=== PATIENT | female | born 1955 | race Caucasian/White ===

== ENCOUNTER 2020-09-21 09:05 | Inpatient (IN) | payer MEDICARE, OTHER ==
[2020-09-21] MEDS ORDERED: SODIUM CHLORIDE 0.9% 500 ML 500 ML IV ONE (09:41)
[2020-09-21] MEDS ORDERED: ASPIRIN 81 MG PO STA (09:41)
[2020-09-21] MEDS ORDERED: NITROGLYCERIN OINT 1 INCH/GM PACKET TOPICAL STA (09:41)
[2020-09-21] MEDS ORDERED: NITROGLYCERIN SL TABS 0.4 MG TAB SUBLINGUAL STA (09:41)
--- NOTE | 2020-09-21 09:45 | ED ---
General Adult HPI - General Chief complaint: Chest Pain Stated complaint: Chest Pains Time Seen by Provider: 09/21/20 09:10 Source: patient, RN notes reviewed, old records reviewed Mode of arrival: wheelchair Limitations: no limitations - History of Present Illness Initial comments: This is a 65-year-old female who presents emergency Department with a past medical history significant for atrial fibrillation a strong family history of heart disease. Patient states 2 days ago on Friday she was having a fast heart rate up to 150 beats a minute. Patient states it lasts about 45 hours and eventually subsided. Patient states when it started she was taking a screw out of the wall and her heart started racing she became very diaphoretic at this time. Patient states she was not short of breath and she did not have any chest pain or discomfort at that time. Yesterday however she started having chest discomfort in the lower chest and she states the pain radiates to the right shoulder. Patient states that persisted until today. She decided to come to the emergency department she took a nitroglycerin it did not help she took a second nitroglycerin of her husbands and it did help with the pain but she still has having some pain. Patient denies any recent fever but states she has a chronic cough. Patient denies wanting to legs calf tenderness. - Related Data Home Medications Medication Instructions Recorded Confirmed ALPRAZolam [Xanax] 0.5 mg PO HS PRN 09/21/20 09/21/20 Cetirizine HCl [Zyrtec] 10 mg PO HS 09/21/20 09/21/20 Fluticasone Nasal [place] [Flonase 2 spr EA NOSTRIL DAILY 09/21/20 09/21/20 Nasal [place]] Ibuprofen [Motrin Ib] 400 mg PO Q8H PRN 09/21/20 09/21/20 Mometasone/Formoterol [Dulera 200 2 puff INHALATION RT-DAILY 09/21/20 09/21/20 Mcg-5 Mcg Inhaler] Montelukast [Singulair] 10 mg PO HS 09/21/20 09/21/20 Allergies Allergy/AdvReac Type Severity Reaction Status Date / Time codeine Allergy Unknown Verified 09/21/20 10:35 Penicillins Allergy Unknown Verified 09/21/20 10:35 Sulfa (Sulfonamide Allergy Unknown Verified 09/21/20 10:35 Antibiotics) Review of Systems ROS Statement: Those systems with pertinent positive or pertinent negative responses have been documented in the HPI. ROS Other: All systems not noted in ROS Statement are negative. Past Medical History Past Medical History: Atrial Fibrillation, Asthma, Cancer Additional Past Medical History / Comment(s): breast cancer History of Any Multi-Drug Resistant Organisms: None Reported Past Surgical History: Hysterectomy Additional Past Surgical History / Comment(s): mastectomy Past Psychological History: No Psychological Hx Reported Smoking Status: Never smoker Past Alcohol Use History: None Reported Past Drug Use History: None Reported General Exam - General Exam Comments Initial Comments: GENERAL: Patient is well-developed and well-nourished. Patient is nontoxic and well- hydrated and is in mild distress. ENT: Neck is soft and supple. No significant lymphadenopathy is noted. Oropharynx is clear. Moist mucous membranes. Neck has full range of motion without elici ting any pain. EYES: The sclera were anicteric and conjunctiva were pink and moist. Extraocular m ovements were intact and pupils were equal round and reactive to light. Eyelids were unremarkable. PULMONARY: Unlabored respirations. Good breath sounds bilaterally. No audible rales rhonchi or wheezing was noted. CARDIOVASCULAR: Patient is tachycardic at about 110 beats a minute ABDOMEN: Soft and nontender with normal bowel sounds. SKIN: Skin is clear with no lesions or rashes and otherwise unremarkable. NEUROLOGIC: Patient is alert and oriented x3. Cranial nerves II through XII are grossly intact. Motor and sensory are also intact. Normal speech, volume and content. Symmetrical smile. MUSCULOSKELETAL: Normal extremities with adequate strength and full range of motion. No lower extremity swelling or edema. No calf tenderness. LYMPHATICS: No significant lymphadenopathy is noted PSYCHIATRIC: Normal psychiatric evaluation. Limitations: no limitations Course Vital Signs 09/21/20 09/21/20 09:10 10:14 Temperature 99.9 F H 98 F Pulse Rate 120 H 98 Respiratory 18 18 Rate Blood Pressure 120/74 110/66 O2 Sat by Pulse 99 100 Oximetry Medical Decision Making - Medical Decision Making EKG shows sinus tachycardia at 104 bpm GA interval is 132 QRS is 72 QT interval 340 QTC is 447. Patient's EKG shows no ST segment elevation or depression. Patient received nitroglycerin sublingual in the emergency department she stated her pain completely relieved after this. Patient states she has no shoulder pain as well. Chest x-ray shows no acute abnormality. I spoke with some physicians agreed to admit the patient admitted the patient wrote admitting orders I continued heparin Nitropaste and the floor. - Lab Data Result diagrams: 09/21/20 09:47 09/21/20 09:47 Lab Results 09/21/20 09/21/20 09/21/20 Range/Units 09:47 09:47 09:47 WBC 14.3 H (3.8-10.6) k/uL RBC 5.26 (3.80-5.40) m/uL Hgb 15.6 (11.4-16.0) gm/dL Hct 46.7 H (34.0-46.0) % MCV 88.7 (80.0-100.0) fL MCH 29.7 (25.0-35.0) pg MCHC 33.5 (31.0-37.0) g/dL RDW 13.0 (11.5-15.5) % Plt Count 269 (150-450) k/uL MPV 8.7 Neutrophils % 77 % Lymphocytes % 14 % Monocytes % 6 % Eosinophils % 1 % Basophils % 0 % Neutrophils # 11.1 H (1.3-7.7) k/uL Lymphocytes # 2.1 (1.0-4.8) k/uL Monocytes # 0.9 (0-1.0) k/uL Eosinophils # 0.1 (0-0.7) k/uL Basophils # 0.0 (0-0.2) k/uL PT 10.3 (9.0-12.0) sec INR 1.0 (<1.2) APTT 23.2 (22.0-30.0) sec D-Dimer 0.31 (<0.60) mg/L FEU Sodium 133 L (137-145) mmol/L Potassium 3.9 (3.5-5.1) mmol/L Chloride 100 (98-107) mmol/L Carbon Dioxide 22 (22-30) mmol/L Anion Gap 11 mmol/L BUN 22 H (7-17) mg/dL Creatinine 0.87 (0.52-1.04) mg/dL Est GFR (CKD-EPI)AfAm 81 (>60 ml/min/1.73 sqM) Est GFR (CKD-EPI)NonAf 70 (>60 ml/min/1.73 sqM) Glucose 112 H (74-99) mg/dL Calcium 9.5 (8.4-10.2) mg/dL Magnesium 1.7 (1.6-2.3) mg/dL Total Bilirubin 1.4 H (0.2-1.3) mg/dL AST 28 (14-36) U/L ALT 25 (4-34) U/L Alkaline Phosphatase 86 (38-126) U/L Troponin I (0.000-0.034) ng/mL NT-Pro-B Natriuret Pep pg/mL Total Protein 6.9 (6.3-8.2) g/dL Albumin 4.5 (3.5-5.0) g/dL 09/21/20 09/21/20 Range/Units 09:47 09:47 WBC (3.8-10.6) k/uL RBC (3.80-5.40) m/uL Hgb (11.4-16.0) gm/dL Hct (34.0-46.0) % MCV (80.0-100.0) fL MCH (25.0-35.0) pg MCHC (31.0-37.0) g/dL RDW (11.5-15.5) % Plt Count (150-450) k/uL MPV Neutrophils % % Lymphocytes % % Monocytes % % Eosinophils % % Basophils % % Neutrophils # (1.3-7.7) k/uL Lymphocytes # (1.0-4.8) k/uL Monocytes # (0-1.0) k/uL Eosinophils # (0-0.7) k/uL Basophils # (0-0.2) k/uL PT (9.0-12.0) sec INR (<1.2) APTT (22.0-30.0) sec D-Dimer (<0.60) mg/L FEU Sodium (137-145) mmol/L Potassium (3.5-5.1) mmol/L Chloride (98-107) mmol/L Carbon Dioxide (22-30) mmol/L Anion Gap mmol/L BUN (7-17) mg/dL Creatinine (0.52-1.04) mg/dL Est GFR (CKD-EPI)AfAm (>60 ml/min/1.73 sqM) Est GFR (CKD-EPI)NonAf (>60 ml/min/1.73 sqM) Glucose (74-99) mg/dL Calcium (8.4-10.2) mg/dL Magnesium (1.6-2.3) mg/dL Total Bilirubin (0.2-1.3) mg/dL AST (14-36) U/L ALT (4-34) U/L Alkaline Phosphatase (38-126) U/L Troponin I <0.012 (0.000-0.034) ng/mL NT-Pro-B Natriuret Pep 498 pg/mL Total Protein (6.3-8.2) g/dL Albumin (3.5-5.0) g/dL Critical Care Time Critical Care Time: Yes Total Critical Care Time: 35 Disposition Clinical Impression: Unstable angina pectoris Disposition: ADMITTED IP TO THIS [facility] Referrals: Nonstaff,Physician [REFERRING] - 1-2 days Time of Disposition: 11:43
--- NOTE | 2020-09-21 10:05 | XR ---
EXAMINATION TYPE: XR chest 2V DATE OF EXAM: 09/21/2020 COMPARISON: NONE HISTORY: History of asthma presents with chest pain and cough. TECHNIQUE: Frontal and lateral views of the chest are obtained. FINDINGS: Overlying EKG leads. Elevation and eventration anterior aspect right hemidiaphragm. There i s no focal air space opacity, pleural effusion, or pneumothorax seen. The cardiac silhouette size is within normal limits. The osseous structures are intact. Surgical clips right neck region noted. IMPRESSION: No acute cardiopulmonary process.
[2020-09-21 10:08] LABS: Basophils % (A) 0 %; Eosinophils # (A) 0.1 k/uL (0-0.7); Eosinophils % (A) 1 %; HCT 46.7 % (34.0-46.0); HGB 15.6 gm/dL (11.4-16.0); Lymphocytes # (A) 2.1 k/uL (1.0-4.8); Lymphocytes % (A) 14 %; MCH 29.7 pg (25.0-35.0); MCHC 33.5 g/dL (31.0-37.0); MCV 88.7 fL (80.0-100.0); Mean Platelet Volume 8.7; Monocytes # (A) 0.9 k/uL (0-1.0); Monocytes % (A) 6 %; Neutrophils # (A) 11.1 k/uL (1.3-7.7); Neutrophils % (A) 77 %; Platelet Count 269 k/uL (150-450); RBC 5.26 m/uL (3.80-5.40); WBC 14.3 k/uL (3.8-10.6)
[2020-09-21 10:18] LABS: Albumin 4.5 g/dL (3.5-5.0); Calcium 9.5 mg/dL (8.4-10.2); Magnesium 1.7 mg/dL (1.6-2.3); Potassium 3.9 mmol/L (3.5-5.1); Total Bilirubin 1.4 mg/dL (0.2-1.3); Total Protein 6.9 g/dL (6.3-8.2)
[2020-09-21 10:21] LABS: D-Dimer 0.31 mg/L FEU (<0.60); Partial Thromboplastin Time 23.2 sec (22.0-30.0); Prothrombin Time 10.3 sec (9.0-12.0)
[2020-09-21] MEDS ORDERED: ONDANSETRON 4 MG/2 ML VIAL IVP STA (10:50)
[2020-09-21] MEDS ORDERED: HEPARIN SODIUM,PORCINE 5,000 UNIT/ML 1 ML VIAL IV ONE (11:41)
[2020-09-21] MEDS ORDERED: HEPARIN SOD,PORK IN 0.45% NACL 25,000 UNIT in 0.45% NACL 1 250ML.BAG IV SCH (11:45)
[2020-09-21] MEDS ORDERED: NITROGLYCERIN SL TABS 0.4 MG TAB SUBLINGUAL PRN (11:45)
[2020-09-21] MEDS ORDERED: traMADol 50 MG TAB PO PRN (13:22)
[2020-09-21] MEDS ORDERED: NALOXONE 0.4 MG/ML 1 ML VIAL IV PRN (13:22)
[2020-09-21] MEDS ORDERED: ACETAMINOPHEN TAB 325 MG TAB PO PRN (13:22)
[2020-09-21] MEDS ORDERED: MELATONIN 3 MG TABLET PO PRN (13:22)
[2020-09-21] MEDS ORDERED: ALPRAZolam 0.5 MG TAB PO PRN (13:30)
--- NOTE | 2020-09-21 13:40 | P.HPIM ---
History of Present Illness H&P Date: 09/21/20 Chief Complaint: chest pain Patient is a 65-year-old female with a past medical history atrial fibrillation, breast cancer, and asthma who presented to the ER with complaints of chest pain. In the ER she underwent extensive evaluation. Vital signs within normal limits on admission. Initial EKG showed normal sinus rhythm without any significant ST-T wave changes. Initial laboratory analysis showed mildly elevated white blood cell count. Initial set of troponins were negative. She was given a dose of nitro in the emergency department her chest pain. She was placed in observation for further evaluation. Patient seen and examined at bedside. Two days ago she was taking a screw out of the wall became diaphoretic and had a pounding in neck, Pulse on BP machine 140- 150 it stayed up for 4-5 hours. Took baby aspirin and had improvement. During t hat time she was as feeling diaphoretic and lightheaded. She has a chronic cough unchanged. Yesterday had terrible heart burn and epigastric pain and pain in right shoulder, + dry heaves. This continued to today pain is epigastric wirh pain in shoulder. + Shortness of breath yesteryda took breathing treatment which seemed to help. This pain lasted into today. No numbness in Jaw, Tingling on right side of chest and down into finger tips on waking a few days ago, has not returned. Took ASA 325mg on the way to hospital. + chronic cough that is unchanged, no fevers, no flu. 15 years ago had chest pain underwent cardiac cath and it was negative. Following with Dr. Perry last seen 1.5 weeks ago and had an echo done, not on anticoagulation for A fib. Review of Systems Pertinent positives and negatives as discussed in HPI, a complete review of systems was performed and all other systems are negative. Past Medical History Past Medical History: Atrial Fibrillation, Asthma, Cancer Additional Past Medical History / Comment(s): breast cancer History of Any Multi-Drug Resistant Organisms: None Reported Past Surgical History: Hysterectomy Additional Past Surgical History / Comment(s): mastectomy, cardiac cath, partial thyroidesctomy. Past Psychological History: No Psychological Hx Reported Smoking Status: Never smoker Past Alcohol Use History: None Reported Past Drug Use History: None Reported Additional History: No cane or walker - Past Family History Mother Family Medical History: Hyperlipidemia, Hypertension, Myocardial Infarction (MT) Additional Family Medical History / Comment(s): aortic valve replacement. MT age greater than 65 Medications and Allergies Home Medications Medication Instructions Recorded Confirmed Type ALPRAZolam [Xanax] 0.5 mg PO HS PRN 09/21/20 09/21/20 History Cetirizine HCl [Zyrtec] 10 mg PO HS 09/21/20 09/21/20 History Fluticasone Nasal [place] [Flonase 2 spr EA NOSTRIL DAILY 09/21/20 09/21/20 History Nasal [place]] Ibuprofen [Motrin Ib] 400 mg PO Q8H PRN 09/21/20 09/21/20 History Mometasone/Formoterol [Dulera 200 2 puff INHALATION RT-DAILY 09/21/20 09/21/20 History Mcg-5 Mcg Inhaler] Montelukast [Singulair] 10 mg PO HS 09/21/20 09/21/20 History Allergies Allergy/AdvReac Type Severity Reaction Status Date / Time codeine Allergy Unknown Verified 09/21/20 10:35 Penicillins Allergy Unknown Verified 09/21/20 10:35 Sulfa (Sulfonamide Allergy Unknown Verified 09/21/20 10:35 Antibiotics) Physical Exam Osteopathic Statement: *. No significant issues noted on an osteopathic s tructural exam other than those noted in the History and Physical/Consult. Vitals: Vital Signs Temp Pulse Pulse Resp BP BP Pulse Ox 09/21/20 12:18 97.9 F 101 H 18 116/84 96 09/21/20 11:45 96 09/21/20 10:14 98 F 98 18 110/66 100 09/21/20 09:10 99.9 F H 120 H 18 120/74 99 Intake and Output 09/20/20 09/21/20 09/21/20 22:59 06:59 14:59 Other: # Voids 1 Weight 72.575 kg General: non toxic, no distress, appears at stated age Derm: warm, dry Head: atraumatic, normocephalic, symmetric Eyes: EOMI, no lid lag, anicteric sclera, pupils equal round reactive to light ENT: Nose and ears atraumatic, no thrush, no pharyngeal erythema Neck: No thyromegaly, no cervical lymphadenopathy, trachea midline, supple Mouth: no lip lesion, mucus membranes moist Cardiovascular: S1S2 reg, no murmur, positive posterior tibial pulse bilateral, no edema, capillary refill less than 2 seconds Lungs: clear to ascultation bilateral, no ronchi, no rales, no wheeze, no accessory muscle use Abdominal: soft, nontender to palpation, no guarding, no appreciable organomegaly, normal bowel sounds Ext: no gross muscle atrophy, muscle strength muscle strength 5 out of 5 in all 4 extremities, no contractures Neuro: CN II-XI grossly intact, light touch intact all 4 extremities, finger to nose within normal limits, Psych: Alert, oriented, appropriate affect Results CBC & Chem 7: 09/21/20 09:47 09/21/20 09:47 Labs: Abnormal Lab Results - Last 24 Hours (Table) 09/21/20 09/21/20 Range/Units 09:47 09:47 WBC 14.3 H (3.8-10.6) k/uL Hct 46.7 H (34.0-46.0) % Neutrophils # 11.1 H (1.3-7.7) k/uL Sodium 133 L (137-145) mmol/L BUN 22 H (7-17) mg/dL Glucose 112 H (74-99) mg/dL Total Bilirubin 1.4 H (0.2-1.3) mg/dL Thrombosis Risk Factor Assmnt - DVT/VTE Prophylaxis DVT/VTE Prophylaxis: Low risk, early ambulation encouraged - Choose All That Apply Each Risk Factor Represents 2 Points: Age 61-74 years Thrombosis Risk Factor Assessment Total Risk Factor Score: 2 Thrombosis Risk Factor Assessment Level: Low Risk Assessment and Plan Assessment: Epigastric pain - possible acute coronary syndrome - follow troponin - ASA, heparin gtt, statin, BB - Tele - Cardio consult - NPO after midnight - gallbladder US Hx of A fib - not on chronic anticoagulation, follows with Dr. Perry, echo 1 week ago - tele Asthma without exacerbation -Continue home inhalers, flonase - zyrtec The patient is placed in observation with an anticipated less than 2 midnight stay for evaluation of chest pain.. Surrogate decision-maker: DVT prophylaxis: SCDs Discussed with: patient, nursing Anticipated discharge date: in AM Anticipated discharge place: home A total of 35 minutes was spent on the care of this complex patient more than 50% of the time was spent in counseling and care coordination.
[2020-09-21] MEDS: SODIUM CHLORIDE 0.9% 1,000 ML IV SCH (16:25)
[2020-09-21] MEDS: NITROGLYCERIN OINT 1 INCH/GM PACKET TOPICAL SCH ×2 (16:26→20:53)
[2020-09-21] MEDS: METOPROLOL TARTRATE 12.5 MG TAB PO SCH (20:46)
[2020-09-21] MEDS: LORATADINE 10 MG TAB PO SCH (20:46)
[2020-09-21] MEDS: MONTELUKAST 10 MG TAB PO SCH (20:46)
[2020-09-21] MEDS ORDERED: ATORVASTATIN 80 MG TAB PO SCH (21:00)
[2020-09-22] MEDS: SODIUM CHLORIDE 0.9% 1,000 ML IV SCH ×4 (02:44→20:57)
[2020-09-22 03:35] LABS: HCT 38.7 % (34.0-46.0); HGB 13.3 gm/dL (11.4-16.0); MCH 30.9 pg (25.0-35.0); MCHC 34.4 g/dL (31.0-37.0); MCV 89.7 fL (80.0-100.0); Mean Platelet Volume 8.4; Platelet Count 183 k/uL (150-450); RBC 4.32 m/uL (3.80-5.40); RDW 13.1 % (11.5-15.5); WBC 13.3 k/uL (3.8-10.6)
[2020-09-22 03:56] LABS: Albumin 3.2 g/dL (3.5-5.0); Calcium 8.2 mg/dL (8.4-10.2); Potassium 3.6 mmol/L (3.5-5.1); Total Bilirubin 1.3 mg/dL (0.2-1.3); Total Protein 5.2 g/dL (6.3-8.2)
[2020-09-22] MEDS: NITROGLYCERIN OINT 1 INCH/GM PACKET TOPICAL SCH ×2 (05:29→10:13)
--- NOTE | 2020-09-22 08:28 | US ---
EXAMINATION TYPE: US gallbladder DATE OF EXAM: 09/22/2020 COMPARISON: NONE CLINICAL HISTORY: gallbladder us. epigastric pain. EXAM MEASUREMENTS: Liver Length: 12.2 cm Gallbladder Wall: 0.7 cm CBD: 0.5 cm Right Kidney: 10.9 x 4.6 x 4.5 cm Technically difficult study due to midline bowel gas. Pancreas: not well visualized due to midline bowel gas Liver: limited visualization to intercostal window, visualized portions wnl. Gallbladder: no stones seen, distended at 9.4 cm, wall thickening up to 0.7 cm. With some suggestion of pericholecystic fluid Evidence for sonographic Miranda's sign: Yes CBD: wnl Right Kidney: No hydronephrosis or masses seen There is no ascites. IMPRESSION: Exam is limited. Technologist reports a positive sonographic Miranda's sign. Poor penetrat ion of the ultrasound within the liver could be due to underlying hepatic steatosis. Correlate for ch olecystitis.
[2020-09-22] MEDS: oxyCODONE-APAP 5-325MG 1 EACH TAB PO PRN (08:38)
[2020-09-22] MEDS: FLUTICASONE 50MCG/SPRAY NASAL 16GM EA NOSTRIL SCH (08:39)
[2020-09-22] MEDS: METOPROLOL TARTRATE 12.5 MG TAB PO SCH ×2 (08:43→20:56)
[2020-09-22] MEDS: SYMBICORT 160-4.5 MCG INHALER INHALATION SCH ×2 (08:46→21:40)
[2020-09-22] MEDS ORDERED: ASPIRIN 325 MG TAB PO SCH (09:00)
--- NOTE | 2020-09-22 11:11 | P.CRDCN ---
History of Present Illness Consult date: 09/22/20 History of present illness: CHIEF COMPLAINT: Chest pain HISTORY OF PRESENT ILLNESS: This is a 65 -year old female with a past medical history significant for paroxysmal atrial fibrillation, breast cancer, and asthma. Patient follows in the office with Dr. Perry. We have been asked to see the patient in consultation for chest pain. Patient examined this morning at the bedside. She reports on Friday she was helping her unscrew something from the wall when she began feeling short of breath and diaphoretic. She states she took her blood pressure which was increased with a systolic in the 150s. She noticed her heart rate was also elevated above 100. She states the symptoms eventually resolved. Yesterday she reports she began having intense epigastric pain that radiated to her right shoulder. She states she was burping a lot and thought she was having heartburn. She reports some nausea and vomiting as well. At the time of my exam this morning, the patient is not having any chest pain. She is having epigastric pain and also right upper quadrant abdominal pain. She appears uncomfortable and is holding her abdomen at the time of examination. DIAGNOSTICS: EKG reveals sinus tachycardia without signs of acute ischemia Chest xray negative for acute cardiopulmonary process Laboratory data: WBC 14.3. Hemoglobin 15.6. Platelet count 269. D-dimer 0.31. Sodium 133. Potassium 3.9. BUN 22. Creatinine 0.87. Bilirubin 1.4. AST 28. ALT 25. Troponins negative 3. BNP 498. Current home cardiac medications include none Echocardiogram completed in the office on 09/11/2020 reveals ejection fraction of 60%, moderate aortic regurgitation, mild mitral regurgitation, and mild tricuspid regurgitation. Gallbladder ultrasound no gallstones seen. Gallbladder distended at 9.4 cm. Wall thickening up to 0.7 cm. Some suggestion of pericholecystic fluid. Correlate for cholecystitis. REVIEW OF SYSTEMS: At the time of my exam: CONSTITUTIONAL: Denies fever or chills. HEENT: Denies blurred vision, vision changes, or eye pain. Denies hemoptysis CARDIOVASCULAR: Denies chest pain, orthopnea, PND or palpitations RESPIRATORY: No shortness of breath. GASTROINTESTINAL: Reports epigastric pain and right upper quadrant abdominal pain. HEMATOLOGIC: Denies bleeding disorders. GENITOURINARY: Denies any blood in urine. SKIN: Denies pruitis. Denies rash. PHYSICAL EXAM: VITAL SIGNS: Reviewed. GENERAL: Well-developed in no acute distress. HEENT: Head is normocephalic. Pupils are equal, round. Sclerae anicteric. Mucous membranes of the mouth are moist. Neck supple. No JVD or thyromegaly LUNGS: Respirations even and unlabored. Lungs essentially clear to auscultation bilaterally. HEART: Regular rate and rhythm. S1 and S2 heard. Systolic murmur noted. ABDOMEN: Soft. Nondistended. Patient with tenderness of epigastric region and right upper quadrant with palpation. EXTREMITIES: Normal range of motion. No clubbing or cyanosis. Peripheral pulses intact. No lower extremity edema NEUROLOGIC: Awake and alert. Oriented x 3. ASSESSMENT: Epigastric and right upper quadrant abdominal pain, gallbladder ultrasound reveals possible cholecystitis Leukocytosis Paroxysmal atrial fibrillation, not on long-term anticoagulation, currently maintaining sinus mechanism History of asthma History of breast cancer PLAN: An acute coronary event has been ruled out Discontinue IV heparin, aspirin, nitro Recommend surgical consultation Patient is stable from a cardiac perspective. She may follow up with Dr. Perry outpatient Nurse practitioner note has been reviewed by physician. Signing provider agrees with the documented findings, assessment, and plan of care. Past Medical History Past Medical History: Atrial Fibrillation, Asthma, Cancer Additional Past Medical History / Comment(s): breast cancer History of Any Multi-Drug Resistant Organisms: None Reported Past Surgical History: Hysterectomy Additional Past Surgical History / Comment(s): mastectomy, cardiac cath, partial thyroidesctomy. Past Psychological History: No Psychological Hx Reported Smoking Status: Never smoker Past Alcohol Use History: None Reported Past Drug Use History: None Reported - Past Family History Mother Family Medical History: Hyperlipidemia, Hypertension, Myocardial Infarction ([place]) Additional Family Medical History / Comment(s): aortic valve replacement. [place] age greater than 65 Medications and Allergies Home Medications Medication Instructions Recorded Confirmed Type ALPRAZolam [Xanax] 0.5 mg PO HS PRN 09/21/20 09/21/20 History Cetirizine HCl [Zyrtec] 10 mg PO HS 09/21/20 09/21/20 History Fluticasone Nasal [place] [Flonase 2 spr EA NOSTRIL DAILY 09/21/20 09/21/20 History Nasal [place]] Ibuprofen [Motrin Ib] 400 mg PO Q8H PRN 09/21/20 09/21/20 History Mometasone/Formoterol [Dulera 200 2 puff INHALATION RT-DAILY 09/21/20 09/21/20 History Mcg-5 Mcg Inhaler] Montelukast [Singulair] 10 mg PO HS 09/21/20 09/21/20 History Allergies Allergy/AdvReac Type Severity Reaction Status Date / Time codeine Allergy Unknown Verified 09/21/20 10:35 Penicillins Allergy Unknown Verified 09/21/20 10:35 Sulfa (Sulfonamide Allergy Unknown Verified 09/21/20 10:35 Antibiotics) Physical Exam Vitals: Vital Signs Temp Pulse Resp BP Pulse Ox 09/22/20 09:00 98.2 F 91 16 109/62 93 L 09/22/20 03:00 98.0 F 94 20 108/64 92 L 09/21/20 21:00 98.8 F 103 H 17 106/65 95 09/21/20 15:00 98.2 F 98 16 103/53 99 09/21/20 12:18 97.9 F 101 H 18 116/84 96 09/21/20 11:45 96 Intake and Output 09/21/20 09/22/20 09/22/20 22:59 06:59 14:59 Intake Total 196.929 67.204 Balance 196.929 67.204 Intake: Intake, IV Titration 76.929 67.204 Amount Heparin Sod,Pork in 0.45% 76.929 67.204 NaCl 25,000 unit In 0.45 % NaCl 1 250ml.bag @ 12 UNITS/KG/HR 8.709 mls/hr IV .Q24H [facility] Rx#: [id number] Oral 120 Other: Voiding Method Toilet Toilet Toilet # Voids 2 2 Results 09/22/20 03:19 09/22/20 03:19 Cardiac Enzymes 09/21/20 09/21/20 09/22/20 Range/Units 12:12 16:01 03:19 AST 16 (14-36) U/L Troponin I <0.012 <0.012 (0.000-0.034) ng/mL Coagulation 09/21/20 09/22/20 Range/Units 19:12 03:19 APTT 44.0 H 49.1 H (22.0-30.0) sec Lipids 09/22/20 Range/Units 03:19 Triglycerides 85 (<150) mg/dL Cholesterol 165 (<200) mg/dL HDL Cholesterol 59 (40-60) mg/dL CBC 09/22/20 Range/Units 03:19 WBC 13.3 H (3.8-10.6) k/uL RBC 4.32 (3.80-5.40) m/uL Hgb 13.3 (11.4-16.0) gm/dL Hct 38.7 (34.0-46.0) % Plt Count 183 (150-450) k/uL Comprehensive Metabolic Panel 09/22/20 Range/Units 03:19 Sodium 132 L (137-145) mmol/L Potassium 3.6 (3.5-5.1) mmol/L Chloride 104 (98-107) mmol/L Carbon Dioxide 26 (22-30) mmol/L BUN 15 (7-17) mg/dL Creatinine 0.92 (0.52-1.04) mg/dL Glucose 115 H (74-99) mg/dL Calcium 8.2 L (8.4-10.2) mg/dL AST 16 (14-36) U/L ALT 17 (4-34) U/L Alkaline Phosphatase 68 (38-126) U/L Total Protein 5.2 L (6.3-8.2) g/dL Albumin 3.2 L (3.5-5.0) g/dL Current Medications Generic Name Dose Route Start Last Admin Trade Name Freq PRN Reason Stop Dose Admin Acetaminophen 650 mg 09/21/20 13:22 09/21/20 20:50 Acetaminophen Tab 325 Mg Tab PO 650 mg Q6HR PRN Administration Mild Pain or Fever > 100.5 Alprazolam 0.5 mg 09/21/20 13:30 Alprazolam 0.5 Mg Tab PO HS PRN Anxiety Atorvastatin Calcium 80 mg 09/21/20 21:00 09/21/20 20:46 Atorvastatin 80 Mg Tab PO 80 mg HS [facility] Administration Budesonide/Formoterol Fumarate 2 puff 09/22/20 08:00 09/22/20 08:46 Symbicort 160-4.5 Mcg Inhaler INHALATION Not Given RT-BID [facility] Fluticasone Propionate 2 spray 09/22/20 09:00 09/22/20 08:39 Fluticasone 50mcg/[place] Nasal 16gm EA NOSTRIL 2 spray DAILY [facility] Administration Sodium Chloride 1,000 mls @ 120 mls/hr 09/21/20 13:30 09/22/20 06:45 Saline 0.9% IV Not Given .Q8H20M [facility] Loratadine 10 mg 09/21/20 21:00 09/21/20 20:46 Loratadine 10 Mg Tab PO 10 mg HS [facility]IMAL Administration Melatonin 3 mg 09/21/20 13:22 Melatonin 3 Mg Tablet PO HS PRN Insomnia Metoprolol Tartrate 12.5 mg 09/21/20 21:00 09/22/20 08:43 Metoprolol Tartrate 12.5 Mg Tab PO 12.5 mg BID BIMAL Administration Montelukast Sodium 10 mg 09/21/20 21:00 09/21/20 20:46 Montelukast 10 Mg Tab PO 10 mg HS [facility]IMAL Administration Naloxone HCl 0.2 mg 09/21/20 13:22 Naloxone 0.4 Mg/Ml 1 Ml Vial IV Q2M PRN Opioid Reversal Nitroglycerin 0.4 mg 09/21/20 11:45 Nitroglycerin Sl Tabs 0.4 Mg Tab SUBLINGUAL Q5M PRN Chest Pain Ondansetron HCl 4 mg 09/21/20 13:22 Ondansetron 4 Mg/2 Ml Vial IVP Q8HR PRN Nausea And Vomiting Oxycodone/Acetaminophen 1 each 09/21/20 13:22 09/22/20 08:38 Oxycodone-Apap 5-325mg 1 Each Tab PO 1 each Q4HR PRN Administration Severe Pain Tramadol HCl 50 mg 09/21/20 13:22 09/22/20 04:26 Tramadol 50 Mg Tab PO 50 mg Q6H PRN Administration Moderate Pain Intake and Output 09/21/20 09/22/20 09/22/20 22:59 06:59 14:59 Intake Total 196.929 67.204 Balance 196.929 67.204 Intake: Intake, IV Titration 76.929 67.204 Amount Heparin Sod,Pork in 0.45% 76.929 67.204 NaCl 25,000 unit In 0.45 % NaCl 1 250ml.bag @ 12 UNITS/KG/HR 8.709 mls/hr IV .Q24H [facility] Rx#: [id number] Oral 120 Other: Voiding Method Toilet Toilet Toilet # Voids 2 2 09/22/20 03:19 09/22/20 03:19
[2020-09-22] MEDS ORDERED: AMPICILLIN-SULBACTAM 3 GM in SODIUM CHLORIDE 0.9% 100 ML IVPB SCH (12:00)
[2020-09-22] MEDS: HYDROmorphone 1 MG/ML 1 ML SYRINGE IVP PRN ×2 (12:34→19:26)
[2020-09-22] MEDS ORDERED: MAG HYDROX/AL HYDROX/SIMETH 30 ML, HYOSCYAMINE ELIXIR 10 ML, LIDOCAINE VISCOUS 2% 10 ML PO ONE ×3 (13:00)
[2020-09-22] MEDS: PANTOPRAZOLE 40 MG/10 ML VIAL IVP SCH (13:05)
--- NOTE | 2020-09-22 13:54 | CT ---
EXAMINATION TYPE: CT abdomen pelvis wo con DATE OF EXAM: 09/22/2020 COMPARISON: Ultrasound gallbladder 09/22/2020 HISTORY: RUQ pain CT DLP: 867 mGycm Automated exposure control for dose reduction was used. TECHNIQUE: Helical acquisition of images from the lung bases through the pelvis. FINDINGS: Lack of contrast could compromise sensitivity. There is a small hiatal hernia. Distal esoph edd shows some fluid-filled, distal esophagus is showing a thickened wall appearance LUNG BASES: Some probable bilateral atelectatic changes or scarring is noted, bilateral breast prosth eses are present.. AORTA: No significant abnormality is appreciated. LIVER/GB: The gallbladder is hydropic, there is inflammatory change present within the surrounding fa t in the right upper quadrant. There is gallbladder wall thickening as noted on ultrasound. There is some questionable soft tissue attenuation noted within the common bile duct. Periportal halos are not ed. PANCREAS: No significant abnormality is seen. SPLEEN: No significant abnormality is seen. ADRENALS: No significant abnormality is seen. KIDNEYS: No significant abnormality is seen. REPRODUCTIVE ORGANS: Not seen. URINARY BLADDER: No significant abnormality is seen. BOWEL: No significant abnormality is seen. FREE AIR: No Free Air is visible. ASCITES: Minimal fluid present about the liver. PELVIC ADENOPATHY: None visualized. RETROPERITONEAL ADENOPATHY: No Retroperitoneal Adenopathy visible. OSSEOUS STRUCTURES: Degenerative disc disease and spinal curvature changes are present, there is ass ociated facet arthropathy in the lower lumbar spine. IMPRESSION: CHOLECYSTITIS, CONSIDER CHOLEDOCHOLITHIASIS, GASTROENTEROLOGY CONSULT. THERE COULD BE UNDERLYING CHOL ANGITIS, HEPATITIS.
--- NOTE | 2020-09-22 14:56 | P.GSCN ---
History of Present Illness Consult date: 09/22/20 History of present illness: CHIEF COMPLAINT: Chest pain HISTORY OF PRESENT ILLNESS: This is a 65-year-old female with a known past medical history of atrial fibrillation, breast cancer and asthma. She presented to the emergency room with complaints of chest pain. Patient also was complaining of right upper quadrant epigastric abdominal pain radiating up into the right shoulder. She also complains of nausea and vomiting and heartburn- like symptoms. Patient was seen evaluated by cardiology. Troponins were negative 3 sets. EKG reveals sinus tachycardia without any acute ischemia. Acute coronary event ruled out per cardiology. Gallbladder ultrasound positive Miranda sign. Poor penetration of the ultrasound within the liver could be due to underlying hepatic steatosis. Correlate for cholecystitis. Computed tomography scan of the abdomen and pelvis shows cholecystitis, consider choledocholithiasis. There could be underlying cholangitis, hepatitis. PAST MEDICAL HISTORY: See list. PAST SURGICAL HISTORY: See list. MEDICATIONS: See list. ALLERGIES: See list. SOCIAL HISTORY: No illicit drug use. REVIEW OF SYSTEMS: CONSTITUTIONAL: Denies fever or chills. HEENT: Denies blurred vision, vision changes, or eye pain. Denies hemoptysis CARDIOVASCULAR: Denies chest pain or pressure. RESPIRATORY: No shortness of breath. GASTROINTESTINAL: See HPI for pertinent findings HEMATOLOGIC: Denies bleeding disorders. GENITOURINARY: Denies any blood in urine or increased urinary frequency. SKIN: Denies pruitis. Denies rash. PHYSICAL EXAM: VITAL SIGNS: Reviewed GENERAL: Well-developed in no acute distress. HEENT: No sclera icterus. Extraocular movements grossly intact. Moist buccal mucosa. Head is atraumatic, normocephalic. No nasal drainage. ABDOMEN: Soft. Nondistended. Right upper quadrant tenderness with palpation NEUROLOGIC: Alert and oriented. Cranial nerves II through XII grossly intact. LABORATORY DATA: WBC 13.3 hemoglobin 13.3 Troponins negative 3 sets liver enzymes normal IMAGING: Gallbladder ultrasound positive Miranda sign. Poor penetration of the ultrasound within the liver could be due to underlying hepatic steatosis. Correlate for cholecystitis. Computed tomography scan of the abdomen and pelvis shows cholecystitis, consider choledocholithiasis. There could be underlying cholangitis, hepatitis. ASSESSMENT: 1. Epigastric and right upper quadrant abdominal pain 2. Acute cholecystitis 3. Chest pain. Acute coronary syndrome ruled out. Patient evaluated by cardiology PLAN: -Patient scheduled for laparoscopic cholecystectomy with Dr. Singer on 09/25/2020 -At this time patient can have low-fat diet. And then nothing by mouth after midnight on Friday Thank you for this consultation Physician Pizza Delivery Driver note has been reviewed by physician. Signing provider agrees with the documented findings, assessment, and plan of care. Past Medical History Past Medical History: Atrial Fibrillation, Asthma, Cancer Additional Past Medical History / Comment(s): breast cancer History of Any Multi-Drug Resistant Organisms: None Reported Past Surgical History: Hysterectomy Additional Past Surgical History / Comment(s): mastectomy, cardiac cath, partial thyroidesctomy. Past Psychological History: No Psychological Hx Reported Smoking Status: Never smoker Past Alcohol Use History: None Reported Past Drug Use History: None Reported - Past Family History Mother Family Medical History: Hyperlipidemia, Hypertension, Myocardial Infarction ([place]) Additional Family Medical History / Comment(s): aortic valve replacement. [place] age greater than 65 Medications and Allergies Home Medications Medication Instructions Recorded Confirmed Type ALPRAZolam [Xanax] 0.5 mg PO HS PRN 09/21/20 09/21/20 History Cetirizine HCl [Zyrtec] 10 mg PO HS 09/21/20 09/21/20 History Fluticasone Nasal [place] [Flonase 2 spr EA NOSTRIL DAILY 09/21/20 09/21/20 History Nasal [place]] Ibuprofen [Motrin Ib] 400 mg PO Q8H PRN 09/21/20 09/21/20 History Mometasone/Formoterol [Dulera 200 2 puff INHALATION RT-DAILY 09/21/20 09/21/20 History Mcg-5 Mcg Inhaler] Montelukast [Singulair] 10 mg PO HS 09/21/20 09/21/20 History Allergies Allergy/AdvReac Type Severity Reaction Status Date / Time codeine Allergy Unknown Verified 09/21/20 10:35 Penicillins Allergy Unknown Verified 09/21/20 10:35 Sulfa (Sulfonamide Allergy Unknown Verified 09/21/20 10:35 Antibiotics) Surgical - Exam Vital Signs Temp Pulse Resp BP Pulse Ox 99.9 F H 120 H 18 120/74 99 09/21/20 09:10 09/21/20 09:10 09/21/20 09:10 09/21/20 09:10 09/21/20 09:10 Results - Labs 09/22/20 03:19 09/22/20 03:19 Abnormal Lab Results - Last 24 Hours (Table) 09/21/20 09/22/20 09/22/20 Range/Units 19:12 03:19 03:19 WBC 13.3 H (3.8-10.6) k/uL APTT 44.0 H (22.0-30.0) sec Sodium 132 L (137-145) mmol/L Glucose 115 H (74-99) mg/dL Calcium 8.2 L (8.4-10.2) mg/dL Total Protein 5.2 L (6.3-8.2) g/dL Albumin 3.2 L (3.5-5.0) g/dL 09/22/20 Range/Units 03:19 WBC (3.8-10.6) k/uL APTT 49.1 H (22.0-30.0) sec Sodium (137-145) mmol/L Glucose (74-99) mg/dL Calcium (8.4-10.2) mg/dL Total Protein (6.3-8.2) g/dL Albumin (3.5-5.0) g/dL Diabetes panel 09/22/20 Range/Units 03:19 Sodium 132 L (137-145) mmol/L Potassium 3.6 (3.5-5.1) mmol/L Chloride 104 (98-107) mmol/L Carbon Dioxide 26 (22-30) mmol/L BUN 15 (7-17) mg/dL Creatinine 0.92 (0.52-1.04) mg/dL Glucose 115 H (74-99) mg/dL Calcium 8.2 L (8.4-10.2) mg/dL AST 16 (14-36) U/L ALT 17 (4-34) U/L Alkaline Phosphatase 68 (38-126) U/L Total Protein 5.2 L (6.3-8.2) g/dL Albumin 3.2 L (3.5-5.0) g/dL Triglycerides 85 (<150) mg/dL HDL Cholesterol 59 (40-60) mg/dL Thyroid panel 09/22/20 Range/Units 03:19 TSH 2.720 (0.465-4.680) mIU/L Calcium panel 09/22/20 Range/Units 03:19 Calcium 8.2 L (8.4-10.2) mg/dL Albumin 3.2 L (3.5-5.0) g/dL Pituitary panel 09/22/20 Range/Units 03:19 Sodium 132 L (137-145) mmol/L Potassium 3.6 (3.5-5.1) mmol/L Chloride 104 (98-107) mmol/L Carbon Dioxide 26 (22-30) mmol/L BUN 15 (7-17) mg/dL Creatinine 0.92 (0.52-1.04) mg/dL Glucose 115 H (74-99) mg/dL Calcium 8.2 L (8.4-10.2) mg/dL TSH 2.720 (0.465-4.680) mIU/L Adrenal panel 09/22/20 Range/Units 03:19 Sodium 132 L (137-145) mmol/L Potassium 3.6 (3.5-5.1) mmol/L Chloride 104 (98-107) mmol/L Carbon Dioxide 26 (22-30) mmol/L BUN 15 (7-17) mg/dL Creatinine 0.92 (0.52-1.04) mg/dL Glucose 115 H (74-99) mg/dL Calcium 8.2 L (8.4-10.2) mg/dL Total Bilirubin 1.3 (0.2-1.3) mg/dL AST 16 (14-36) U/L ALT 17 (4-34) U/L Alkaline Phosphatase 68 (38-126) U/L Total Protein 5.2 L (6.3-8.2) g/dL Albumin 3.2 L (3.5-5.0) g/dL
[2020-09-22] MEDS: ONDANSETRON 4 MG/2 ML VIAL IVP PRN (15:48)
--- NOTE | 2020-09-22 17:22 | P.PN ---
Subjective Progress Note Date: 09/22/20 (delayed cahrting seen at 1220) Principal diagnosis: epigastric pain Patient is a 65-year-old female with a past medical history atrial fibrillation, breast cancer, and asthma who presented to the ER with complaints of chest pain. In the ER she underwent extensive evaluation. Vital signs within normal limits on admission. Initial EKG showed normal sinus rhythm without any significant ST-T wave changes. Initial laboratory analysis showed mildly elevated white blood cell count. Initial set of troponins were negative. She was given a dose of nitro in the emergency department her chest pain. She was placed in observation for further evaluation. She was placed on a heparin drip. Cardiology was consulted. Her troponins were cycled and remained normal. She had worsening of her epigastric pain. Liver ultrasound so positive Miranda's signed but was limited evaluation of the liver. Acute coronary syndrome was ruled out cardiology signed off the case. Patient seen and examined at bedside. Her abdominal pain is worsening. She is also feeling somewhat nauseous. She is asking to eat. She denies any shortness of breath, left-sided chest pain. General: ill appearing, mild distress, appears at stated age Derm: warm, dry Head: atraumatic, normocephalic, symmetric Eyes: EOMI, no lid lag, anicteric sclera Mouth: no lip lesion, mucus membranes dry Cardiovascular: S1S2 tachycardiac, no murmur, positive posterior tibial pulse bilateral, Lungs: CTA bilateral, no rhonchi, no rales , no accessory muscle use Abdominal: soft, + tender to palpation RUQ, no guarding, no appreciable organomegaly Ext: no gross muscle atrophy, no edema, no contractures Neuro: CN II-XI grossly intact, no focal neuro deficits Psych: Alert, oriented, appropriate affect Acute cholecystitis with sepsis - rocephin - IVF - If WBC increases then change to levaquin and flagyl - pain control, antiemetics - clear liquid diet - plan for lap jazzy 09/25. Acute coroncary syndrome ruled out P. A fib - not on anticoagulation will follow with Dr. Perry Asthma without exacerbation - symbicort - prn albuterol DVT prophylaxis: SCDs Discussed with: patient, nursing Anticipated discharge: 3-[address]: home A total of 35 minutes was spent on the care of this complex patient more than 50% of the time was spent in counseling and care coordination. Objective - Vital Signs Vital signs: Vital Signs Temp 98.2 F 09/22/20 09:00 Pulse 91 09/22/20 09:00 Resp 18 09/22/20 09:00 BP 109/62 09/22/20 09:00 Pulse Ox 93 L 09/22/20 09:00 Intake & Output 09/21/20 09/22/20 09/22/20 18:59 06:59 18:59 Intake Total 264.133 480 Balance 264.133 480 Weight 72.575 kg Intake: Intake, IV Titration 144.133 480 Amount Heparin Sod,Pork in 0.45% 144.133 NaCl 25,000 unit In 0.45 % NaCl 1 250ml.bag @ 12 UNITS/KG/HR 8.709 mls/hr IV .Q24H [facility] Rx#: [id number] Sodium Chloride 0.9% 1, 480 000 ml @ 120 mls/hr IV . Q8H20M [facility] Rx#:[id number] Oral 120 Other: Voiding Method Toilet Toilet # Voids 1 2 - Labs CBC & Chem 7: 09/22/20 03:19 09/22/20 03:19 Labs: Abnormal Lab Results - Last 24 Hours (Table) 09/21/20 09/22/20 09/22/20 Range/Units 19:12 03:19 03:19 WBC 13.3 H (3.8-10.6) k/uL APTT 44.0 H (22.0-30.0) sec Sodium 132 L (137-145) mmol/L Glucose 115 H (74-99) mg/dL Calcium 8.2 L (8.4-10.2) mg/dL Total Protein 5.2 L (6.3-8.2) g/dL Albumin 3.2 L (3.5-5.0) g/dL 09/22/20 Range/Units 03:19 WBC (3.8-10.6) k/uL APTT 49.1 H (22.0-30.0) sec Sodium (137-145) mmol/L Glucose (74-99) mg/dL Calcium (8.4-10.2) mg/dL Total Protein (6.3-8.2) g/dL Albumin (3.5-5.0) g/dL
[2020-09-22] MEDS: LORATADINE 10 MG TAB PO SCH (20:56)
[2020-09-22] MEDS: MONTELUKAST 10 MG TAB PO SCH (20:56)
[2020-09-23] MEDS: HYDROmorphone 1 MG/ML 1 ML SYRINGE IVP PRN ×2 (08:52→21:34)
[2020-09-23] MEDS: METOPROLOL TARTRATE 12.5 MG TAB PO SCH ×2 (09:02→21:34)
[2020-09-23] MEDS: PANTOPRAZOLE 40 MG/10 ML VIAL IVP SCH (09:02)
[2020-09-23] MEDS: SYMBICORT 160-4.5 MCG INHALER INHALATION SCH ×2 (09:02→17:18)
[2020-09-23] MEDS: FLUTICASONE 50MCG/SPRAY NASAL 16GM EA NOSTRIL SCH (09:02)
[2020-09-23] MEDS: SODIUM CHLORIDE 0.9% 1,000 ML IV SCH ×2 (09:10→16:32)
[2020-09-23 09:22] LABS: MCHC 32.4 g/dL (31.0-37.0); MCV 89.6 fL (80.0-100.0); Mean Platelet Volume 10.4; Platelet Count 131 k/uL (150-450); RBC 4.47 m/uL (3.80-5.40); RDW 13.5 % (11.5-15.5); WBC 11.5 k/uL (3.8-10.6)
[2020-09-23 09:33] LABS: Albumin 2.8 g/dL (3.5-5.0); Calcium 7.9 mg/dL (8.4-10.2); Potassium 3.6 mmol/L (3.5-5.1); Total Bilirubin 1.1 mg/dL (0.2-1.3); Total Protein 5.1 g/dL (6.3-8.2)
--- NOTE | 2020-09-23 16:29 | P.PN ---
Subjective Progress Note Date: 09/23/20 CHIEF COMPLAINT: Acute cholecystitis HISTORY OF PRESENT ILLNESS: The patient is a 65-year-old female who presented with chest pain with history of atrial fibrillation who on work-up was diagnosed with cholecystitis. She reports new chest pressure following eating ice cream for lunch. No reports of moderate abdominal pain. She reports personal history of bronchitis and reports decrease oxygenation as a result. ROS: No reports of nausea and vomiting. No chills. T-max 99.8. No new chest pain. No productive sputum PHYSICAL EXAM: VITAL SIGNS: Reviewed CONSTITUTIONAL: Well developed and in no acute distress. EYES: Conjuctivae without sclera icterus. Extraocular movements grossly intact. HEAD, EARS, NOSE, THROAT: Moist buccal mucosa. Head is atraumatic, normocephalic. Hears conversational speech. No nasal drainage. NECK: Supple. No thyroidomegaly. RESPIRATORY: Non-labored respirations and equal bilateral excursions. CARDIOVASCULAR: Palpable 2+ radial pulses. ABDOMEN: No peritonitis MUSCULOSKELETAL: No gross deformity of the lower extremities noted. No clubbing. No cyanosis. SKIN: Good skin turgor. Well perfused. NEUROLOGIC: Cranial nerves II through XII grossly intact. No focal or lateralizing signs. PSYCH: Appropriate affect. Alert and oriented to person, place and time. CLINICAL LABS: White blood cell count 13.3 down to 11.5. AST, ALT, and alkaline phosphatase elevated. STUDIES: US of gallbladder independently reviewed with gallbladder sludge identified. This is my independent interpretation. ASSESSMENT: 1. Cholecystitis 2. Atypical chest pain 3. Elevated liver enzymes PLAN: 1. Recommend low fat diet. She was told to avoid ice-cream and fatty foods. 2. Monitor LFTs 3. Antibiotics started for leukocytosis Objective - Vital Signs Vital signs: Vital Signs Temp 98.6 F 09/23/20 09:00 Pulse 92 09/23/20 09:00 Resp 18 09/23/20 09:00 BP 112/65 09/23/20 09:00 Pulse Ox 90 L 09/23/20 09:00 Intake & Output 09/22/20 09/23/20 09/23/20 18:59 06:59 18:59 Intake Total 480 1250 465 Balance 480 1250 465 Intake: Intake, IV Titration 480 1010 225 Amount Sodium Chloride 0.9% 1, 480 960 225 000 ml @ 75 mls/hr IV . [id number] [facility] Rx#:[id number] cefTRIAXone 1 gm In 50 Sodium Chloride 0.9% 50 ml @ 100 mls/hr IVPB Q24HR [facility] Rx#:[id number] Oral 240 240 Other: Voiding Method Toilet Toilet Toilet # Voids 2 2 - Labs CBC & Chem 7: 09/23/20 08:37 09/23/20 08:37 Labs: Abnormal Lab Results - Last 24 Hours (Table) 09/23/20 09/23/20 Range/Units 08:37 08:37 WBC 11.5 H (3.8-10.6) k/uL Plt Count 131 L (150-450) k/uL Sodium 134 L (137-145) mmol/L Chloride 108 H (98-107) mmol/L Glucose 134 H (74-99) mg/dL Calcium 7.9 L (8.4-10.2) mg/dL AST 60 H (14-36) U/L ALT 67 H (4-34) U/L Alkaline Phosphatase 137 H (38-126) U/L Total Protein 5.1 L (6.3-8.2) g/dL Albumin 2.8 L (3.5-5.0) g/dL Assessment and Plan (1) Cholecystitis Current Visit: Yes Status: Acute Code(s): K81.9 - CHOLECYSTITIS, UNSPECIFIED SNOMED Code(s): 59189730 (2) Atrial fibrillation and flutter Current Visit: Yes Status: Acute Code(s): I48.91 - UNSPECIFIED ATRIAL FIBRILLATION; I48.92 - UNSPECIFIED ATRIAL FLUTTER SNOMED Code(s): 751942141 (3) Atypical chest pain Current Visit: Yes Status: Acute Code(s): R07.89 - OTHER CHEST PAIN SNOMED Code(s): 586527193 (4) Bronchitis Current Visit: Yes Status: Acute Code(s): J40 - BRONCHITIS, NOT SPECIFIED ACUTE OR CHRONIC SNOMED Code(s): 89413670
[2020-09-23] MEDS ORDERED: polyethylene glycoL 3350 17 GM POWD.PACK PO PRN (18:25)
--- NOTE | 2020-09-23 19:00 | P.PN ---
Subjective Progress Note Date: 09/23/20 (delayed charting seen at 0900) Principal diagnosis: epigastric pain Patient is a 65-year-old female with a past medical history atrial fibrillation, breast cancer, and asthma who presented to the ER with complaints of chest pain. In the ER she underwent extensive evaluation. Vital signs within normal limits on admission. Initial EKG showed normal sinus rhythm without any significant ST-T wave changes. Initial laboratory analysis showed mildly elevated white blood cell count. Initial set of troponins were negative. She was given a dose of nitro in the emergency department her chest pain. She was placed in observation for further evaluation. She was placed on a heparin drip. Cardiology was consulted. Her troponins were cycled and remained normal. She had worsening of her epigastric pain. Liver ultrasound so positive Miranda's signed but was limited evaluation of the liver. Acute coronary syndrome was ruled out cardiology signed off the case. CT abdomen and pelvis was done which confirmed acute jazzy. Plan is for lap jazzy on 09/25 Patient seen and examined at bedside. abdominal pain is better controlled, no nausea, feeling better, no chest pain, no shortness of breath General: ill appearing, mild distress, appears at stated age Derm: warm, dry Head: atraumatic, normocephalic, symmetric Eyes: EOMI, no lid lag, anicteric sclera Mouth: no lip lesion, mucus membranes dry Cardiovascular: S1S2 tachycardiac, no murmur, positive posterior tibial pulse bilateral, Lungs: CTA bilateral, no rhonchi, no rales , no accessory muscle use Abdominal: soft, + tender to palpation RUQ, no guarding, no appreciable organomegaly Ext: no gross muscle atrophy, no edema, no contractures Neuro: CN II-XI grossly intact, no focal neuro deficits Psych: Alert, oriented, appropriate affect Acute cholecystitis with sepsis - rocephin - IVF - If WBC increases then change to levaquin and flagyl - pain control, antiemetics - clear liquid diet - plan for lap jazzy 09/25. Thrmobocytopenia - almost drop in half monitor for HIT with heparin gtt - repeat CBC in AM - Check HIT AB/ PF4 if falls again in AM Transaminitis - likely related to above - follow liver enzymes P. A fib - not on anticoagulation will follow with Dr. Perry Asthma without exacerbation - symbicort - prn albuterol Acute coroncary syndrome ruled out DVT prophylaxis: SCDs Discussed with: patient, nursing Anticipated discharge: 3-[address]: home A total of 35 minutes was spent on the care of this complex patient more than 50% of the time was spent in counseling and care coordination. Objective - Vital Signs Vital signs: Vital Signs Temp 98.6 F 09/23/20 09:00 Pulse 92 09/23/20 09:00 Resp 18 09/23/20 09:00 BP 112/65 09/23/20 09:00 Pulse Ox 90 L 09/23/20 09:00 Intake & Output 09/22/20 09/23/20 09/23/20 18:59 06:59 18:59 Intake Total 480 1250 465 Balance 480 1250 465 Intake: Intake, IV Titration 480 1010 225 Amount Sodium Chloride 0.9% 1, 480 960 225 000 ml @ 75 mls/hr IV . [id number] [facility] Rx#:[id number] cefTRIAXone 1 gm In 50 Sodium Chloride 0.9% 50 ml @ 100 mls/hr IVPB Q24HR [facility] Rx#:[id number] Oral 240 240 Other: Voiding Method Toilet Toilet Toilet # Voids 2 2 - Labs CBC & Chem 7: 09/23/20 08:37 09/23/20 08:37 Labs: Abnormal Lab Results - Last 24 Hours (Table) 09/23/20 09/23/20 Range/Units 08:37 08:37 WBC 11.5 H (3.8-10.6) k/uL Plt Count 131 L (150-450) k/uL Sodium 134 L (137-145) mmol/L Chloride 108 H (98-107) mmol/L Glucose 134 H (74-99) mg/dL Calcium 7.9 L (8.4-10.2) mg/dL AST 60 H (14-36) U/L ALT 67 H (4-34) U/L Alkaline Phosphatase 137 H (38-126) U/L Total Protein 5.1 L (6.3-8.2) g/dL Albumin 2.8 L (3.5-5.0) g/dL
[2020-09-23] MEDS: LEVOFLOXACIN 500MG-D5W PMX 500 MG in DEXTROSE/WATER 1 100ML.BAG IVPB SCH (21:33)
[2020-09-23] MEDS: LORATADINE 10 MG TAB PO SCH (21:34)
[2020-09-23] MEDS: MONTELUKAST 10 MG TAB PO SCH (21:34)
[2020-09-24] MEDS: HYDROmorphone 1 MG/ML 1 ML SYRINGE IVP PRN (02:51)
[2020-09-24] MEDS: SODIUM CHLORIDE 0.9% 1,000 ML IV SCH ×2 (05:07→21:58)
[2020-09-24 07:15] LABS: HCT 35.7 % (34.0-46.0); MCH 30.8 pg (25.0-35.0); MCHC 33.6 g/dL (31.0-37.0); MCV 91.8 fL (80.0-100.0); Mean Platelet Volume 8.4; Platelet Count 156 k/uL (150-450); RBC 3.89 m/uL (3.80-5.40); RDW 13.1 % (11.5-15.5); WBC 7.2 k/uL (3.8-10.6)
[2020-09-24 07:28] LABS: ALT 69 U/L (4-34); AST 35 U/L (14-36); African American GFR (CKD) >90 (>60 ml/min/1.73 sqM); Albumin 2.4 g/dL (3.5-5.0); Alkaline Phosphatase 207 U/L (38-126); Anion Gap 3 mmol/L; Blood Urea Nitrogen 10 mg/dL (7-17); Calcium 7.7 mg/dL (8.4-10.2); Carbon Dioxide 25 mmol/L (22-30); Chloride 108 mmol/L (98-107); Glucose 92 mg/dL (74-99); Magnesium 1.9 mg/dL (1.6-2.3); Non-African American GFR(CKD) 80 (>60 ml/min/1.73 sqM); Potassium 3.6 mmol/L (3.5-5.1); Sodium 136 mmol/L (137-145); Total Bilirubin 0.7 mg/dL (0.2-1.3); Total Protein 4.4 g/dL (6.3-8.2)
[2020-09-24] MEDS: FLUTICASONE 50MCG/SPRAY NASAL 16GM EA NOSTRIL SCH (09:36)
[2020-09-24] MEDS: METOPROLOL TARTRATE 12.5 MG TAB PO SCH ×2 (09:37→20:50)
[2020-09-24] MEDS: PANTOPRAZOLE 40 MG/10 ML VIAL IVP SCH (09:37)
[2020-09-24] MEDS: SYMBICORT 160-4.5 MCG INHALER INHALATION SCH ×2 (10:14→20:59)
--- NOTE | 2020-09-24 12:10 | P.PN ---
Subjective Progress Note Date: 09/24/20 CHIEF COMPLAINT: Cholecystitis HISTORY OF PRESENT ILLNESS: The patient is a 65-year-old female who presented with chest pain with history of atrial fibrillation who on work-up was diagnosed with cholecystitis. Yesterday, she had chest pressure following eating ice cream and was on oxygen. She is now off oxygen. Her diet has been reduced to fat free liquid diet. Chest pressure is resolved. ROS: No reports of nausea and vomiting. No chills. No productive sputum PHYSICAL EXAM: VITAL SIGNS: Reviewed CONSTITUTIONAL: Well developed and in no acute distress. EYES: Conjuctivae without sclera icterus. Extraocular movements grossly intact. HEAD, EARS, NOSE, THROAT: Moist buccal mucosa. Head is atraumatic, normocephalic. Hears conversational speech. No nasal drainage. NECK: Supple. No thyroidomegaly. RESPIRATORY: Non-labored respirations and equal bilateral excursions. CARDIOVASCULAR: Palpable 2+ radial pulses. ABDOMEN: No peritonitis. Resolved epigastric tenderness. MUSCULOSKELETAL: No gross deformity of the lower extremities noted. No clubbing. No cyanosis. SKIN: Good skin turgor. Well perfused. NEUROLOGIC: Cranial nerves II through XII grossly intact. No focal or laterali zing signs. PSYCH: Appropriate affect. Alert and oriented to person, place and time. CLINICAL LABS: White blood cell count 13.3 down to 11.5, now normal, less than 10.0. LFTs continue to improve and trend downward ASSESSMENT: 1. Cholecystitis 2. Atypical chest pain 3. Elevated liver enzymes PLAN: 1. Cholecystectomy for tomorrow. 2. NPO after midnight. 3. Patient elevated risk for surgery due to per-existing COPD, cardiomyopathy. Objective - Vital Signs Vital signs: Vital Signs Temp 98 F 09/24/20 08:25 Pulse 94 09/24/20 08:25 Resp 16 09/24/20 08:25 BP 112/68 09/24/20 08:25 Pulse Ox 93 L 09/24/20 08:25 Intake & Output 09/23/20 09/24/20 09/24/20 18:59 06:59 18:59 Intake Total 465 1680 850 Balance 465 1680 850 Intake: Intake, IV Titration 225 600 600 Amount Sodium Chloride 0.9% 1 225 600 600 000 ml @ 75 mls/hr IV . [id number] [facility] Rx#:[id number] Oral 240 1080 250 Other: Voiding Method Toilet Toilet Toilet # Voids 2 2 - Labs CBC & Chem 7: 09/24/20 06:51 09/24/20 06:51 Labs: Abnormal Lab Results - Last 24 Hours (Table) 09/24/20 Range/Units 06:51 Sodium 136 L (137-145) mmol/L Chloride 108 H (98-107) mmol/L Calcium 7.7 L (8.4-10.2) mg/dL ALT 69 H (4-34) U/L Alkaline Phosphatase 207 H (38-126) U/L Total Protein 4.4 L (6.3-8.2) g/dL Albumin 2.4 L (3.5-5.0) g/dL Assessment and Plan (1) Cholecystitis Current Visit: Yes Status: Acute Code(s): K81.9 - CHOLECYSTITIS, UNSPECIFIED SNOMED Code(s): 09625039 (2) Atrial fibrillation and flutter Current Visit: Yes Status: Acute Code(s): I48.91 - UNSPECIFIED ATRIAL FIBRILLATION; I48.92 - UNSPECIFIED ATRIAL FLUTTER SNOMED Code(s): 856175652 (3) Atypical chest pain Current Visit: Yes Status: Acute Code(s): R07.89 - OTHER CHEST PAIN SNOMED Code(s): 860642749 (4) Bronchitis Current Visit: Yes Status: Acute Code(s): J40 - BRONCHITIS, NOT SPECIFIED ACUTE OR CHRONIC SNOMED Code(s): 03808599
[2020-09-24] MEDS: MONTELUKAST 10 MG TAB PO SCH (20:50)
[2020-09-24] MEDS: LORATADINE 10 MG TAB PO SCH (20:50)
[2020-09-24] MEDS: LEVOFLOXACIN 500MG-D5W PMX 500 MG in DEXTROSE/WATER 1 100ML.BAG IVPB SCH (21:58)
[2020-09-25] MEDS: SODIUM CHLORIDE 0.9% 1,000 ML IV SCH ×2 (06:41→21:04)
[2020-09-25] MEDS: SYMBICORT 160-4.5 MCG INHALER INHALATION SCH ×2 (08:42→20:19)
[2020-09-25] MEDS: FLUTICASONE 50MCG/SPRAY NASAL 16GM EA NOSTRIL SCH (09:05)
[2020-09-25] MEDS: METOPROLOL TARTRATE 12.5 MG TAB PO SCH ×2 (09:05→21:00)
[2020-09-25] MEDS: PANTOPRAZOLE 40 MG/10 ML VIAL IVP SCH (09:05)
[2020-09-25] MEDS ORDERED: IV FLUID CONTINUATION 800 ML IV ONE (09:31)
[2020-09-25] MEDS ORDERED: HEPARIN SODIUM,PORCINE 5,000 UNIT/ML 1 ML VIAL ONE (09:41)
[2020-09-25] MEDS: ONDANSETRON 4 MG/2 ML VIAL IVP PRN (09:44)
[2020-09-25] MEDS ORDERED: HEPARIN SODIUM,PORCINE 5,000 UNIT/ML 1 ML VIAL SQ ONE (09:44)
[2020-09-25] MEDS ORDERED: fentaNYL (PF) 50 MCG/ML 2 ML AMP ONE (10:04)
[2020-09-25] MEDS ORDERED: ROCURONIUM 10 MG/ML (10 ML VIAL) IV ONE (10:04)
[2020-09-25] MEDS ORDERED: GLYCOPYRROLATE 0.2 MG/ML 2 ML VIAL ONE (10:04)
[2020-09-25] MEDS ORDERED: PROPOFOL 10 MG/ML 20 ML VIAL IV ONE (10:04)
[2020-09-25] MEDS ORDERED: MIDAZOLAM 2 MG/2 ML VIAL ONE (10:04)
[2020-09-25] MEDS ORDERED: HYDROmorphone (PF) 1 MG/ML ONE (10:04)
[2020-09-25] MEDS ORDERED: NEOSTIGMINE 1 MG/ML 10 ML VIAL ONE (10:04)
[2020-09-25] MEDS ORDERED: KETOROLAC 15 MG/ML 1 ML VIAL ONE (10:04)
[2020-09-25] MEDS ORDERED: SUCCINYLCHOLINE CHLORIDE 100 MG/5 ML SYR IV ONE (10:04)
[2020-09-25] MEDS ORDERED: BUPIVACAINE (PF) 0.5% 30 ML VIAL SQ ONE ×2 (10:19→10:24)
[2020-09-25] MEDS ORDERED: LACTATED RINGERS 1,000 ML IV ONE (10:44)
--- NOTE | 2020-09-25 10:55 | P.OP ---
Date of Procedure: 09/25/20 Preoperative Diagnosis: Cholecystitis Postoperative Diagnosis: Cholecystitis Procedure(s) Performed: Laparoscopic cholecystectomy Anesthesia: MARIJA Surgeon: Scooter Singer Estimated Blood Loss (ml): 25 Pathology: other (Gallbladder) Condition: stable Disposition: PACU Operative Findings: pus filled gallbladder Description of Procedure: The patient was placed on the operating table. The patient received a general endotracheal tube anesthesia. The patients abdomen was prepped and draped in the usual sterile fashion. Through an infraumbilical stab incision, the fascia of the anterior abdominal wall was grasped with a pair of Kochers and then the Veress needle was placed in the peritoneal cavity. Position of the Veress needle was confirmed with positive drop test. The abdomen was then insufflated. After adequate insufflation, the 10 mm trocar was placed in the peritoneal cavity. Following this the laparoscope was placed in the peritoneal cavity. The patient was placed in the head-up, right side up position and then a 5 mm trocar was placed in the right lateral and right subcostal position under direct visualization. A 8 mm trocar was placed in the epigastric position. The gallbladder was grasped in the fundus and infundibulum. Traction on the gallbladder was placed in the lateral and the cephalad positions. The triangle of Calot was visualized.. The cystic duct was bluntly dissected until the union of the cystic duct and common bile duct was seen. A critical view of safety was achieved. The cystic duct was then divided and sealed with the Harmonic scissors. A PDS Endoloop was then placed throughout the cystic duct stump. The cystic artery divided and sealed with the Harmonic scissors. The gallbladder was then removed from the liver bed using Harmonic scissors. The gallbladder was then extracted through the epigastric port site. Operative field was checked for any bleeding spots and Harmonic scissors was used to coagulate the liver bed. The abdomen was irrigated. The trocars were removed. The skin was closed using interrupted 3-0 Vicryl suture. Dermabond dressing were applied. The patient tolerated the procedure well.
[2020-09-25] MEDS: HYDROmorphone 1 MG/ML 1 ML SYRINGE IVP ONE ×3 (11:17→11:44)
[2020-09-25] MEDS: oxyCODONE-APAP 5-325MG 1 EACH TAB PO PRN ×2 (14:38→23:45)
--- NOTE | 2020-09-25 15:53 | P.PN ---
Subjective Progress Note Date: 09/25/20 Patient is a 65-year-old female with a past medical history atrial fibrillation, breast cancer, and asthma who presented to the ER with complaints of chest pain. In the ER she underwent extensive evaluation. Vital signs within normal limits on admission. Initial EKG showed normal sinus rhythm without any significant ST-T wave changes. Initial laboratory analysis showed mildly elevated white blood cell count. Initial set of troponins were negative. She was given a dose of nitro in the emergency department her chest pain. She was placed in observation for further evaluation. She was placed on a heparin drip. Cardiology was consulted. Her troponins were cycled and remained normal. She had worsening of her epigastric pain. Liver ultrasound showed positive Miranda's signed but with limited evaluation of the liver. Acute coronary syndrome was ruled out and cardiology signed off the case. CT abdomen and pelvis was done which confirmed acute cholecystitis. Patient underwent a lap cholecystectomy on 09/25 with no immediate postoperative competitions. The patient was seen postoperatively on the medical floor. She reported 8 out of 10 pain at the surgical sites though denied any additional complaints. She denied nausea, vomiting, diarrhea, fever, chills, cough, chest pain, or shortness of breath. General: Non-toxic, in no acute distress, appears stated age, normal weight HEENT: NC/AT, anicteric sclerae, moist conjunctiva, no lid-lag, PERRLA Cardiovascular: S1/S2 wnl, no murmurs, rubs, or gallops Lungs: Clear to auscultation, normal respiratory effort, no accessory muscle use Abdominal: Postsurgical with multiple small incisions, non-distended, no guarding or rigidity Skin: Warm, dry Extremities: No edema or contractures Psychiatric: Alert and oriented to person, place and time, appropriate affect Neuro: CN II-XII grossly intact, Strength 5/5 in all 4 extremities, Speech intact, Sensation to light touch grossly intact throughout Assessment/plan Acute cholecystitis, sepsis resolved -Patient started on Levaquin by surgery -Pain control -Diet as per surgery service -Antiemetics Paroxysmal A. fib -Not on chronic anti-coagulation -Follows with Dr. Perry Transaminitis, improved Thrombocytopenia, resolved DVT prophylaxis -Lovenox Discussed with: Patient Anticipated discharge date: in am Anticipated discharge place: home A total of 35 minutes was spent on the care of this complex patient more than 50% of the time was spent in counseling and care coordination. Objective - Vital Signs Vital signs: Vital Signs Temp 97.6 F 09/25/20 14:48 Pulse 91 09/25/20 14:48 Resp 18 09/25/20 14:48 BP 110/70 09/25/20 14:48 Pulse Ox 94 L 09/25/20 14:48 Intake & Output 09/24/20 09/25/20 09/25/20 18:59 06:59 18:59 Intake Total 1400 0 1150 Output Total 25 Balance 1400 0 1125 Weight 72.575 kg Intake: IV 1150 Intake, IV Titration 900 Amount Sodium Chloride 0.9% 1, 900 000 ml @ 75 mls/hr IV . [id number] [facility] Rx#:[id number] Oral 500 0 Output: Estimated Blood Loss 25 Other: Voiding Method Toilet Toilet Toilet # Voids 3 - Labs CBC & Chem 7: 09/24/20 06:51 09/24/20 06:51
[2020-09-25] MEDS: HYDROmorphone 1 MG/ML 1 ML SYRINGE IVP PRN ×2 (16:27→20:59)
[2020-09-25] MEDS: LEVOFLOXACIN 500MG-D5W PMX 500 MG in DEXTROSE/WATER 1 100ML.BAG IVPB SCH (21:00)
[2020-09-25] MEDS: MONTELUKAST 10 MG TAB PO SCH (21:00)
[2020-09-25] MEDS: LORATADINE 10 MG TAB PO SCH (21:01)
[2020-09-26] MEDS: HYDROmorphone 1 MG/ML 1 ML SYRINGE IVP PRN (01:52)
[2020-09-26 03:55] VITALS: RESP 16
[2020-09-26] MEDS ORDERED: PANTOPRAZOLE 40 MG TABLET PO SCH (07:30)
[2020-09-26] MEDS: FLUTICASONE 50MCG/SPRAY NASAL 16GM EA NOSTRIL SCH (08:28)
[2020-09-26] MEDS: oxyCODONE-APAP 5-325MG 1 EACH TAB PO PRN (08:29)
[2020-09-26] MEDS: METOPROLOL TARTRATE 12.5 MG TAB PO SCH (08:29)
[2020-09-26] MEDS ORDERED: ENOXAPARIN 40 MG/0.4 ML SYRINGE SQ SCH (09:00)
[2020-09-26 09:30] VITALS: BP 141/79; PULSE 87; TEMP 98.7
--- NOTE | 2020-09-26 11:37 | P.PN ---
Subjective Progress Note Date: 09/26/20 CHIEF COMPLAINT: Cholecystitis HISTORY OF PRESENT ILLNESS: Status post laparoscopic cholecystectomy. Patient is postop day #1. She is tolerating diet. She has been up and ambulating. She denies any nausea or vomiting she reports passing gas and having bowel movements. She is tolerating regular diet. She's afebrile. PHYSICAL EXAM: VITAL SIGNS: Reviewed. GENERAL: Well-developed in no acute distress. HEENT: No sclera icterus. Extraocular movements grossly intact. Moist buccal mucosa. Head is atraumatic, normocephalic. ABDOMEN: Soft. Nondistended. Incision sites some dried blood present otherwise no evidence of any infection. And intact. NEUROLOGIC: Alert and oriented. Cranial nerves II through XII grossly intact. ASSESSMENT: 1. Acute cholecystitis status post laparoscopic cholecystectomy PLAN: -Patient can be discharged home from surgical standpoint -Patient to follow-up with Dr. Singer in 1 week Physician Director Outpatient Services note has been reviewed by physician. Signing provider agrees with the documented findings, assessment, and plan of care. Objective - Vital Signs Vital signs: Vital Signs Temp 98.7 F 09/26/20 09:00 Pulse 87 09/26/20 09:00 Resp 16 09/26/20 09:00 BP 141/79 09/26/20 09:00 Pulse Ox 94 L 09/26/20 09:00 Intake & Output 09/25/20 09/26/20 09/26/20 18:59 06:59 18:59 Intake Total 1550 Output Total 25 Balance 1525 Weight 72.575 kg Intake: IV 1150 Oral 400 Output: Estimated Blood Loss 25 Other: Voiding Method Toilet Toilet Toilet # Voids 1 - Labs CBC & Chem 7: 09/24/20 06:51 09/24/20 06:51
--- NOTE | 2020-09-26 11:55 | P.DS ---
Providers Date of admission: 09/22/20 16:28 Expected date of discharge: 09/26/20 Attending physician: Dee Cloud DO Consults: 09/21/20 11:45 Consult Physician Urgent Consulting Provider: [facility] Consult Reason/Comments: Unstable angina Do you want consulting provider notified?: Yes 09/22/20 14:44 Consult Physician Routine Consulting Provider: Scooter Singer Consult Reason/Comments: Acute cholecystitis Do you want consulting provider notified?: Already Contacted Primary care physician: Malcolm Turner DO Hospital Course: Patient is a 65-year-old female with a past medical history atrial fibrillation, breast cancer, and asthma who presented to the ER with complaints of chest pain. In the ER she underwent extensive evaluation. Vital signs within normal limits on admission. Initial EKG showed normal sinus rhythm without any significant ST-T wave changes. Initial laboratory analysis showed mildly elevated white blood cell count. Initial set of troponins were negative. She was given a dose of nitro in the emergency department her chest pain. She was placed in observation for further evaluation. She was placed on a heparin drip. Cardiology was consulted. Her troponins were cycled and remained normal. She had worsening of her epigastric pain. Liver ultrasound showed positive Miranda's signed but with limited evaluation of the liver. Acute coronary syndrome was ruled out and cardiology signed off the case. CT abdomen and pelvis was done which confirmed acute cholecystitis. Patient underwent a lap cholecystectomy on 09/25 with no immediate postoperative competitions. She was kept overnight on 09/25 due to a purulent gallbladder as per the surgery service. The patient was seen and examined at the bedside on the day of discharge. She reported ongoing abdominal pain, 4 out of 10, improved from day prior. Denied any additional complaints. Denied chest pain, shortness of breath, nausea, vomiting, fever, chills, or cough. The patient was advised to follow-up with her outpatient surgery appointment after discharge and to take her pain medications as directed. The surgery service did not wish for the patient to receive any further antibiotics following discharge. Physical Examination General: Non-toxic, in no acute distress, appears stated age, normal weight HEENT: NC/AT, anicteric sclerae, moist conjunctiva, no lid-lag, PERRLA Cardiovascular: S1/S2 wnl, no murmurs, rubs, or gallops Lungs: Clear to auscultation, normal respiratory effort, no accessory muscle use Abdominal: Postsurgical with multiple small incisions, diffuse mild tenderness, non-distended, no guarding or rigidity Skin: Warm, dry Extremities: No edema or contractures Psychiatric: Alert and oriented to person, place and time, appropriate affect Neuro: CN II-XII grossly intact, Strength 5/5 in all 4 extremities, Speech intact, Sensation to light touch grossly intact throughout Discharge diagnosis: Acute cholecystitis, sepsis resolved; paroxysmal A. fib; transaminitis A total of 35 minutes of time were spent preparing this complex discharge summary. Plan - Discharge Summary Discharge Rx Participant: No New Discharge Prescriptions: New oxyCODONE HCL/ACETAMINOPHEN [Percocet 5-325 mg] 1 tab PO Q6HR PRN 3 Days #12 tab PRN Reason: Pain Docusate [Colace] 100 mg PO BID #30 capsule Continue Montelukast [Singulair] 10 mg PO HS Mometasone/Formoterol [Dulera 200 Mcg-5 Mcg Inhaler] 2 puff INHALATION RT- DAILY Fluticasone Nasal Sherwood [Flonase Nasal Sherwood] 2 spr EA NOSTRIL DAILY Cetirizine HCl [Zyrtec] 10 mg PO HS ALPRAZolam [Xanax] 0.5 mg PO HS PRN PRN Reason: Anxiety Discontinued Ibuprofen [Motrin Ib] 400 mg PO Q8H PRN PRN Reason: Pain Discharge Medication List ALPRAZolam [Xanax] 0.5 mg PO HS PRN 09/21/20 [History] Cetirizine HCl [Zyrtec] 10 mg PO HS 09/21/20 [History] Fluticasone Nasal Sherwood [Flonase Nasal Sherwood] 2 spr EA NOSTRIL DAILY 09/21/20 [History] Mometasone/Formoterol [Dulera 200 Mcg-5 Mcg Inhaler] 2 puff INHALATION RT-DAILY 09/21/20 [History] Montelukast [Singulair] 10 mg PO HS 09/21/20 [History] Docusate [Colace] 100 mg PO BID #30 capsule 09/26/20 [Rx] oxyCODONE HCL/ACETAMINOPHEN [Percocet 5-325 mg] 1 tab PO Q6HR PRN 3 Days #12 tab 09/26/20 [Rx] Follow up Appointment(s)/Referral(s): Malcolm Turner DO [Primary Care Provider] - 1-2 Days (the office would like you to call them to schedule your appointment.) Scooter Singer MD [STAFF PHYSICIAN] - 10/03/20 2:00 pm Patient Instructions/Handouts: *Surgery [facility] - Laparoscopic Cholecystectomy Discharge Instructions Activity/Diet/Wound Care/Special Instructions: No driving while taking Narcotic No lifting over 10 pounds You may shower. No soaking or tub baths for 2 weeks Very light activity until you are reevaluated at your follow up appointment with your surgeon low fat diet Discharge Disposition: HOME SELF-CARE
== END 2020-09-26 13:09 | disposition home or self-care (01) | DRG 854 ==
LOC: EC 09:05 → 3NCARDOBS 11:50 → OBSVTOIN 09-22 16:28
PROVIDERS: ADMIT Internal Medicine; ATTEND Internal Medicine
PROC: 0FT44ZZ Resection of Gallbladder, Percutaneous Endoscopic Approach (ICD-10-PCS; principal; 2020-09-25 08:40)
DX: A41.9 Sepsis, unspecified organism (principal); K81.0 Acute cholecystitis; D69.6 Thrombocytopenia, unspecified; R07.89 Other chest pain; I48.0 Paroxysmal atrial fibrillation; J40 Bronchitis, not specified as acute or chronic; R74.01 Elevation of levels of liver transaminase levels; Z79.51 Long term (current) use of inhaled steroids; Z79.899 Other long term (current) drug therapy; Z88.5 Allergy status to narcotic agent; Z88.0 Allergy status to penicillin; Z88.2 Allergy status to sulfonamides; Z85.3 Personal history of malignant neoplasm of breast; Z90.710 Acquired absence of both cervix and uterus; Z82.49 Family history of ischemic heart disease and other diseases of the circulatory system; Z98.890 Other specified postprocedural states; Z83.438 Family history of other disorder of lipoprotein metabolism and other lipidemia; Z95.2 Presence of prosthetic heart valve
CPT/HCPCS: 36415; 71046; 74176; 76705; 80053; 80061; 83690; 83735; 83880; 84443; 84484; 85025; 85027; 85379; 85610; 85730; 88304; 93005; 94640; 96361; 96365; 96375; 96376; 99291